=== PATIENT | male | born 1980 | race Caucasian/White ===

== ENCOUNTER 2024-03-01 06:50 | Emergency (ER) | payer SELFPAY ==
[2024-03-01 06:52] VITALS: BP 135/82; PULSE 89; RESP 22; TEMP 36.6; O2SAT 99; BMI 30.4
--- NOTE | 2024-03-01 07:36 | ED.GENADULT ---
HPI - General Adult General Chief complaint: Abdominal Pain Stated complaint: abd pain rt side Time Seen by Provider: 03/01/24 07:04 Source: patient Mode of arrival: Family Vehicle History of Present Illness HPI narrative: 44-year-old gentleman with no significant past medical history, does not see physicians was in his usual state of excellent health yesterday with no abdominal complaints, nausea, vomiting diarrhea. No back pain. No hematuria. He was woken from sleep at approximately 4:00 a.m. with severe right-sided flank pain. Unable to find a comfortable position. Pain radiates into the right testicle. Pain is severe enough that he feels like he wants to vomit but has not actually done so. He feels like he needs to void but will only voids small amounts. He has never had similar symptoms. Does not describe any penile discharge, with the waves of pain he has chills and sweats but no overt fever. No chest pain, palpitations dyspnea. He describes a low-grade headache yesterday Related Data Previous Rx's Medication Instructions Recorded ondansetron 4 mg disintegrating 4 mg PO Q8H PRN nausea and 03/01/24 tablet vomiting #10 tabs oxycodone-acetaminophen 5 mg-325 1 tab PO Q6H PRN pain #10 tabs 03/01/24 mg tablet Allergies Allergy/AdvReac Type Severity Reaction Status Date / Time No Known Drug Allergies Allergy Verified 03/01/24 08:23 Review of Systems Review of Systems Narrative: Pertinent positive and negative findings as per HPI Exam Initial Vital Signs Initial Vital Signs: Vital Signs Temperature 97.9 F 03/01/24 06:52 Pulse Rate 89 03/01/24 06:52 Respiratory Rate 22 03/01/24 06:52 Blood Pressure 135/82 03/01/24 06:52 Pulse Oximetry 99 03/01/24 06:52 Oxygen Delivery Method Room Air 03/01/24 06:52 General: Healthy appearing, in significant pain but Able to give a complete and coherent history. Well-nourished well-developed HEENT: Moist mucous membranes, normal sclera with reactive pupils, Respiratory: Lungs are clear to auscultation, no wheezing no rales no rhonchi. Full and symmetrical air movement Cardiac: Regular rate and rhythm no murmurs no bruits Abdomen: Soft, no specific abdominal pain and specifically no right lower quadrant pain, no rebound or guarding, he does have right flank pain. No rashes. He does not have significant right upper quadrant abdominal tenderness Skin: Warm and dry, no rashes Neurologic: Grossly neurologically intact with no obvious asymmetries or abnormalities Extremities: No trauma, well perfused Psych: Cooperative, appropriate insight and affect Course Orders Ordered: ED Orders 03/01/24 07:14 Comprehensive Metabolic Panel Stat 03/01/24 07:47 CT kidney ureter bladder (KUB) Stat 03/01/24 07:50 Urinalysis and Microscopic Stat Hydromorphone HCl (Hydromorphone 0.5 Mg Inj) 0.5 mg IV Q15MIN PRN PRN Reason: Pain, Last Admin: 03/01/24 08:07 Dose: 0.5 mg Documented By: JUANA Discontinued Medications Sodium Chloride (Normal Saline 0.9%) 1,000 mls @ 1,000 mls/hr IV BOLUS ONE Stop: 03/01/24 08:45 Last Infusion: 03/01/24 09:08 Dose: Infused Documented By: Admin: 03/01/24 08:06 Dose: 1,000 mls/hr Documented By: JUANA Ketorolac Tromethamine (Ketorolac 30 Mg/Ml Vial) 15 mg IV NOW ONE Stop: 03/01/24 07:47 Last Admin: 03/01/24 08:07 Dose: 15 mg Documented By: JUANA Ondansetron HCl (Ondansetron 4 Mg/2 Ml Inj) 4 mg IV NOW ONE Stop: 03/01/24 07:47 Last Admin: 03/01/24 08:06 Dose: 4 mg Documented By: JUANA Vital Signs Vital signs: Vital Signs - 8 hr 03/01/24 06:52 Temperature 97.9 F Pulse Rate 89 Respiratory Rate 22 Blood Pressure 135/82 Pulse Oximetry 99 Oxygen Delivery Method Room Air Medical Decision Making Lab Data 03/01/24 07:14 Labs: Lab Results 03/01/24 03/01/24 Range/Units 07:14 07:50 Sodium 139 (137-145) mmol/L Potassium 4.1 (3.4-5.1) mmol/L Chloride 108 H (98-107) mmol/L Carbon Dioxide 26 (22-32) mmol/L BUN 26 H (9-20) mg/dL Creatinine 1.50 H (0.66-1.25) mg/dL Estimated GFR 58 L (>60) mL/min BUN/Creatinine Ratio 17.3 (6-22) Glucose 142 H (70-100) mg/dL Calcium 8.6 (8.4-10.2) mg/dL Total Bilirubin 0.6 (0.2-1.3) mg/dL AST 36 (17-59) IU/L ALT 33 (<50) IU/L Alkaline Phosphatase 89 (38-126) U/L Total Protein 7.0 (6.3-8.2) g/dL Albumin 4.5 (3.5-5.0) g/dL Globulin 2.5 (1.7-4.1) g/dL Albumin/Globulin Ratio 1.8 (1.0-2.8) Urine Color Yellow Urine Appearance Clear Urine pH 5.5 (4.5-8.0) Ur Specific [place] >=1.030 H (1.000-1.035) Urine Protein Negative (Negative) Urine Glucose (UA) Negative (Negative) g/dL Urine Ketones Trace H (NEGATIVE) Urine Occult Blood 1+ H (Negative) Urine Nitrate Negative (Negative) Urine Bilirubin Negative (NEGATIVE) Urine Urobilinogen 0.2 (0.2) E.U./dL Ur Leukocyte Esterase Negative (NEGATIVE) Urine RBC 1-5/hpf (0-5/HPF) Urine WBC None seen (0-5/HPF) Ur Squamous Epith Cells 0-1 /hpf (0-5/HPF) Urine Bacteria None seen (None) Ur Culture Indicated? Cult not indicated Vol Urine Centrifuged 10ml (spun) Imaging Data CT scan - abdomen/pelvis: Radiologist's Impression: PROCEDURE: CT KIDNEY URETER BLADDER (KUB) INDICATIONS: acute onset severe R flank pain, ?kidney stone TECHNIQUE: Axial sections were acquired from the lung bases to the pubic symphysis. Coronal and sagittal reformats were performed. For radiation dose reduction, the following was used: automated exposure control, adjustment of mA and/or kV according to patient size. COMPARISON: None. FINDINGS: Image quality: Diagnostic. Lower Chest: No significant findings. URINARY: Right Kidney: Moderate hydronephrosis and perinephric fat stranding. Mild renal edema. Right Ureter: Obstructing 2 millimeter stone in the right UVJ, with moderate hydroureter. Left Kidney: No stones or hydronephrosis. Left Ureter: No hydroureter. Bladder: Urinary bladder wall thickening. ABDOMEN: Liver: No contour-deforming solid mass. Geographic region of hypoattenuation in the right hepatic lobe. Smooth liver contour. Scattered subcentimeter hypoattenuating lesions, too small to characterize by CT but probably small cysts. Gallbladder: No radiopaque gallstones or wall thickening. Biliary ducts: No biliary dilation. Pancreas: No ductal dilation. Spleen: Size is within normal limits. Adrenal Glands: No adrenal nodules. Stomach and Bowel: Normal colonic caliber, without significant wall thickening. Normal appendix. Colonic diverticulosis without evidence of diverticulitis. Peritoneum: No abnormal intraperitoneal fluid. No free air. Ventral Wall: Tiny umbilical hernia containing fat. Abdominal Nodes: No enlarged retroperitoneal or mesenteric lymph nodes. Vessels: Aorta and inferior vena cava are normal in size. PELVIS: Pelvic Organs: Unremarkable. Pelvic Nodes: Unremarkable. Miscellaneous: No inguinal hernias are seen. Bones: Bilateral sacroiliitis. IMPRESSION: Obstructing 2 millimeters stone in the right UVJ, resulting in moderate hydronephrosis, hydroureter and perinephric fat stranding. Urinary bladder wall thickening, suggestive of cystitis, but could be artifact of underdistention. Bilateral sacroiliitis, which can be seen in the setting of other medical conditions, such as inflammatory bowel disease. Dictated by: Artemio Santana M.D. on 03/01/2024 at 8:34 MDM Narrative Medical decision making narrative: CC: Acute onset right flank pain at 4:00 a.m. this morning Complicating co-morbidities: No known medical history, no recent contact with the medical system Data collected from: patient, father Differential considered: Kidney stone, appendicitis, diverticulitis, constipation, gallbladder disease Exam documented above, pertinent findings include: Patient is acutely uncomfortable, having difficulty sitting still, points to his right flank with pain radiating down into the testicle. No abdominal pain per se Lab Test results independently reviewed as above. Pertinent findings: Chemistries shows mild bump in creatinine at 1.5. Glucose is slightly elevated at 142 Urine shows ketone and trace blood. Does not look like a urinary tract infection Imaging studies independently reviewed: CT scan is independently evaluated. Radiology interpretation indicates a 2 mm stone at the right you the J causing minor mild hydronephrosis. Treatments: Fluids, Toradol, Dilaudid, Zofran Re-evaluations: Evaluated, pain is controlled at this point Discussion: 44-year-old gentleman with acute onset right flank pain, labs are reassuring, CT scan confirms 2 mm stone at the right ureterovesical junction. We discussed probability of passing without additional complication, use of pain medications as needed, appropriate in his of fluids and reasons to return to the emergency department. No alternate explanation has been suggested that might be causing the pain. He is safe for discharge Discharge Plan Departure Patient Disposition: Home Clinical Impression: Kidney stone on right side Instructions: DI for Kidney Stones Activity Restrictions/Additional Instructions: Thank you for coming in today Your CT scan should you had a 2 mm kidney stone, almost ready to drop into your bladder on the right side. This is very likely the source of your pain. You were given fluids, the equivalent of IV ibuprofen as well as narcotics in the emergency department. It is safe for you to go home. Using 400 mg of ibuprofen (2 [id number] pills) and 1 Tylenol every 6 hours can be very helpful in controlling pain. For severe pain you can add 1 Percocet to the ibuprofen. Your CT scan shows a moderate amount of stool in your colon this morning. I would recommend laxative or a bit of milk of magnesia this morning to help clean out your colon. Percocet will exacerbate constipation so make sure that you are using a stool softener if that has been more than a day since she had a bowel movement please use additional milk of magnesia. If you have pain that can not be treated with oral pain medication, your unable to pee, you have significant fevers or symptoms change it is appropriate to return to the ER Prescriptions: New oxycodone-acetaminophen 5-325 mg tablet 1 tab PO Q6H PRN (Reason: pain) Qty: 10 0RF ondansetron 4 mg tablet,disintegrating 4 mg PO Q8H PRN (Reason: nausea and vomiting) Qty: 10 0RF Stand Alone Forms: Patient Portal/API
--- NOTE | 2024-03-01 07:47 | DI.CT.S_ITS ---
PROCEDURE: CT KIDNEY URETER BLADDER (KUB) INDICATIONS: acute onset severe R flank pain, ?kidney stone TECHNIQUE: Axial sections were acquired from the lung bases to the pubic symphysis. Coronal and sagittal reformats were performed. For radiation dose reduction, the following was used: automated exposure control, adjustment of mA and/or kV according to patient size. COMPARISON: None. FINDINGS: Image quality: Diagnostic. Lower Chest: No significant findings. URINARY: Right Kidney: Moderate hydronephrosis and perinephric fat stranding. Mild renal edema. Right Ureter: Obstructing 2 millimeter stone in the right UVJ, with moderate hydroureter. Left Kidney: No stones or hydronephrosis. Left Ureter: No hydroureter. Bladder: Urinary bladder wall thickening. ABDOMEN: Liver: No contour-deforming solid mass. Geographic region of hypoattenuation in the right hepatic lobe. Smooth liver contour. Scattered subcentimeter hypoattenuating lesions, too small to characterize by CT but probably small cysts. Gallbladder: No radiopaque gallstones or wall thickening. Biliary ducts: No biliary dilation. Pancreas: No ductal dilation. Spleen: Size is within normal limits. Adrenal Glands: No adrenal nodules. Stomach and Bowel: Normal colonic caliber, without significant wall thickening. Normal appendix. Colonic diverticulosis without evidence of diverticulitis. Peritoneum: No abnormal intraperitoneal fluid. No free air. Ventral Wall: Tiny umbilical hernia containing fat. Abdominal Nodes: No enlarged retroperitoneal or mesenteric lymph nodes. Vessels: Aorta and inferior vena cava are normal in size. PELVIS: Pelvic Organs: Unremarkable. Pelvic Nodes: Unremarkable. Miscellaneous: No inguinal hernias are seen. Bones: Bilateral sacroiliitis. IMPRESSION: Obstructing 2 millimeters stone in the right UVJ, resulting in moderate hydronephrosis, hydroureter and perinephric fat stranding. Urinary bladder wall thickening, suggestive of cystitis, but could be artifact of underdistention. Bilateral sacroiliitis, which can be seen in the setting of other medical conditions, such as inflammatory bowel disease. Dictated by: Artemio Santana M.D. on 03/01/2024 at 8:34 Approved by: Artemio Santana M.D. on 03/01/2024 at 8:40
[2024-03-01 08:02] LABS: Alanine Aminotransferase 33 IU/L (<50); Albumin 4.5 g/dL (3.5-5.0); Albumin Globulin Ratio 1.8 (1.0-2.8); Alkaline Phosphatase 89 U/L (38-126); Aspartate Aminotransferase 36 IU/L (17-59); BUN Creatinine Ratio 17.3 (6-22); Bilirubin Total 0.6 mg/dL (0.2-1.3); Blood Urea Nitrogen 26 mg/dL (9-20); Calcium 8.6 mg/dL (8.4-10.2); Carbon Dioxide 26 mmol/L (22-32); Chloride 108 mmol/L (98-107); Estimated Glomerular Filt Rate 58 mL/min (>60); Globulin 2.5 g/dL (1.7-4.1); Glucose 142 mg/dL (70-100); HEMOLYSIS < 15 (0-50); Potassium 4.1 mmol/L (3.4-5.1); Sodium 139 mmol/L (137-145)
[2024-03-01 08:04] LABS: Appearance Urine UA CLEAR; Bilirubin Urine UA NEGATIVE (NEGATIVE); Color Urine UA YELLOW; Glucose Urine UA NEGATIVE (Negative); Ketones Urine UA TRACE (NEGATIVE); Leukocyte Esterase Urine UA NEGATIVE (NEGATIVE); Nitrite Urine UA NEGATIVE (Negative); Occult Blood Urine UA 1+ (Negative); Protein Urine UA NEGATIVE (Negative); Specific Gravity Urine UA >=1.030 (1.000-1.035); Urobilinogen Urine UA 0.2 E.U./dL (0.2); pH Urine UA 5.5 (4.5-8.0)
[2024-03-01] MEDS: SODIUM CHLORIDE 0.9% 1,000 ML 1000 ML IV (08:06)
[2024-03-01] MEDS: ONDANSETRON 4 MG/2 ML INJ IV (08:06)
[2024-03-01 08:07] LABS: Urine Volume 10mL (spun)
[2024-03-01] MEDS: KETOROLAC 30 MG/ML VIAL 15 MG IV (08:07)
[2024-03-01] MEDS: HYDROMORPHONE 0.5 MG INJ IV (08:07)
[2024-03-01 08:11] LABS: Bacteria Urine None Seen; Culture Indicated Urine Cult Not Indicated; RBC Urine 1-5/HPF (0-5/HPF); Squamous Epithelial Cell Urine 0-1 /HPF (0-5/HPF); WBC Urine None Seen (0-5/HPF)
[2024-03-01 09:51] VITALS: BP 128/71; PULSE 73; RESP 20; TEMP 36.4; O2SAT 98
== END 2024-03-01 09:52 | disposition home or self-care (01) ==
PROVIDERS: Emergency Provider Emergency Medicine
DX: N20.0 Calculus of kidney (principal); N50.811 Right testicular pain; R11.2 Nausea with vomiting, unspecified
CPT/HCPCS: 36415; 74176; 80053; 81001; 96361; 96374; 96375; 99284; J1170; J1885; J2405